=== PATIENT | male | born 1975 | race Caucasian/White ===

== ENCOUNTER 2016-09-25 13:45 | Emergency (ER) | payer BC ==
--- NOTE | 2016-09-25 14:36 | ED ORDER SUMMARY ---
..... Patient: DILCIA BUTLER OrderSheet [facility] VisitID: [id number] [address] [place] [address] 40y, M Registration Date/Time: 09/25/2016 ORDER SHEET Weight: 79.3 kg (stated) Allergies: No Known Drug Allergy GENERAL ORDERS: MEDICATION ORDERS: Tdap IM 0.5 mL (NOW, per protocol) (14:36 09/25/2016 Yovana Gallegos) (15:07 Jose Casillas) IV FLUIDS: ORDER SHEET NOTES: [Electronically signed by Torri Engle P.A.-C (15:05 09/25/2016)] [Electronically signed by Iqra Gordon R.N. (15:09/25/2016)] [Electronically locked/signed by Iqra Gordon R.N. (15:09 09/25/2016)]
--- NOTE | 2016-09-25 14:36 | ED NURSING NOTES ---
Clinical Report - Nurses [facility] [place] [place] [address] 09/25/2016 13:47 Patient: DILCIA BUTLER TRIAGE Triage time 13:45. Acuity: LEVEL 3. Chief Complaint: INJURY TO LEFT WRIST. 13:57 09/25/16. Alert. No acute distress. SEPSIS SCREEN: Sepsis Screen. Negative (no infection suspected/documented). JULIANNA COMA SCORE: [place] Coma Scale: 15- eyes open spontaneously (4); best verbal response- oriented x 4 (5); best motor response- obeys commands (6). --13:57 Oren Yee R.N. 13:57 09/25/16. BP: 160/95. HR: 78. RR: 16. O2 saturation: 100%. Temp: 98.0 F. Pain level now 09/24. --13:57 Oren Yee R.N. Weight: 79.3 kg stated. Height/Length: 70 inches Per Patient. BMI: 25.1. --13:54 Oren Yee R.N. Medications None. --13:56 Oren Yee R.N. Allergies No Known Drug Allergy. --13:56 Oren Yee R.N. Medication/allergy information source: the patient. --13:57 Oren Yee R.N. History Arrived by private vehicle. Historian: patient. Accompanied by friend. Primary physician (no pcp). ( chain saw injury to left wrist.). This occurred just prior to arrival. Occurred at home. He sustained a laceration. 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 PAST MEDICAL HX: Tetanus status: unknown. SOCIAL HX: Former smoker, end date 2011. Occasional alcohol use. No drug use. ABUSE ASSESSMENT: Abuse assessment: The patient was asked "Do you feel safe in your home?". No report of abuse. FALL RISK ASSESSMENT: Fall risk assessment completed. No fall risk identified. NUTRITIONAL RISK ASSESSMENT: The nutritional risk assessment revealed no deficiencies. FUNCTIONAL ASSESSMENT: Functional assessment: no impairments noted. LEARNING NEEDS ASSESSMENT: The learning needs assessment revealed no barriers. SKIN INTEGRITY ASSESSMENT: Skin integrity risk assessment completed. No skin integrity risk identified. --13:57 Oren Yee R.N. PROBLEMS: no known problems. ADDITIONAL SURGERIES: no known surgeries. Interventions ID band on patient. To treatment room. --13:57 Oren Yee R.N. PHYSICAL ASSESSMENT 13:58 09/25/16. Ambulatory to room. GENERAL / NEURO / PSYCH: Oriented X 4. Alert. Appears in no acute distress. EXTREMITIES: Capillary refill is less than 2 seconds in the extremities. Extremity pulses are within normal limits. Neuro-vascular status intact to the extremity. Left wrist: subcutaneous 3.0 cm laceration with controlled bleeding. No limitation in ROM. ( c/o tingling to left thumb and pointer finger). SKIN: Skin is warm and dry. --13:58 Oren Yee R.N. NURSING PROGRESS NOTES 13:58 09/25/16. The plan of care for this patient has been created. Extremity elevated. Neuro-vascular extremity check. Call light placed in reach. Bed placed in lowest position. Brakes of bed on. Patient ready for evaluation- chart flagged. --13:58 Oren Yee R.N. Applied bulky dressing consisting of 4x4 gauze, following the application of antibiotic ointment (bacitracin). Secured with kerlix. --14:42 Edward Blake 15:02 09/25/2016 TDAP IM 0.5 mL given. (Lot#: [id number], expiration date: 05/19/2017, Siebel Solution Architect: sanofi pasteur). Given in the right deltoid. Allergies verified and confirmed 5 rights. Vaccine information statement provided to the patient. --15:07 Iqra Gordon R.N. DISPOSITION / DISCHARGE Departure time: 1507 PM. Condition at departure: improved and stable. No learning barriers present. Discharge instructions provided and reviewed with the patient. Reviewed warnings (fevers or s/sy of infection). Reviewed medication(s) side effects, precautions, dosing and course information. Reviewed wound care instructions. Activity restrictions (light lifting and minimal use of injured extremity) reviewed. Patient verbalized understanding. Written instructions provided in [place]. The patient was discharged by the physician nurseryman assistant. He was discharged home and accompanied by family. He left the Emergency Department ambulatory and via private vehicle. FALL RISK ASSESSMENT: Fall risk assessment completed. No fall risk identified. --15:08 Iqra Gordon R.N. 15:07 09/25/16. BP: 148/92 (regular adult cuff) taken on the left arm, via an automated monitor, while sitting. HR: 68. RR: 12. O2 saturation: 100% on room air. Temp: 98.2 F (oral). Pain level now: 0/10. --15:08 Iqra Gordon R.N. Locked/Released at 09/25/2016 15:09 by Iqra Gordon R.N.
--- NOTE | 2016-09-25 14:36 | ED ORDER SUMMARY ---
..... Patient: DILCIA BUTLER OrderSheet [facility] VisitID: [id number] [address] [place] [address] 40y, M Registration Date/Time: 09/25/2016 ORDER SHEET Weight: 79.3 kg (stated) Allergies: No Known Drug Allergy GENERAL ORDERS: MEDICATION ORDERS: Tdap IM 0.5 mL (NOW, per protocol) (14:36 09/25/2016 Yovana Gallegos) (15:07 Jose Casillas) IV FLUIDS: ORDER SHEET NOTES: [Electronically signed by Torri Engle P.A.-C (15:05 09/25/2016)] [Electronically signed by Iqra Gordon R.N. (15:09/25/2016)] [Electronically locked/signed by Iqra Gordon R.N. (15:09 09/25/2016)]
--- NOTE | 2016-09-25 14:36 | ED NURSING NOTES ---
Clinical Report - Nurses [facility] [place] [address] 09/25/2016 13:47 Patient: DILCIA BUTLER TRIAGE Triage time 13:45. Acuity: LEVEL 3. Chief Complaint: INJURY TO LEFT WRIST. 13:57 09/25/16. Alert. No acute distress. SEPSIS SCREEN: Sepsis Screen. Negative (no infection suspected/documented). JULIANNA COMA SCORE: [place] Coma Scale: 15- eyes open spontaneously (4); best verbal response- oriented x 4 (5); best motor response- obeys commands (6). --13:57 Oren Yee R.N. 13:57 09/25/16. BP: 160/95. HR: 78. RR: 16. O2 saturation: 100%. Temp: 98.0 F. Pain level now 09/24. --13:57 Oren Yee R.N. Weight: 79.3 kg stated. Height/Length: 70 inches Per Patient. BMI: 25.1. --13:54 Oren Yee R.N. Medications None. --13:56 Oren Yee R.N. Allergies No Known Drug Allergy. --13:56 Oren Yee R.N. Medication/allergy information source: the patient. --13:57 Oren Yee R.N. History Arrived by private vehicle. Historian: patient. Accompanied by friend. Primary physician (no pcp). ( chain saw injury to left wrist.). This occurred just prior to arrival. Occurred at home. He sustained a laceration. 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 PAST MEDICAL HX: Tetanus status: unknown. SOCIAL HX: Former smoker, end date 2011. Occasional alcohol use. No drug use. ABUSE ASSESSMENT: Abuse assessment: The patient was asked "Do you feel safe in your home?". No report of abuse. FALL RISK ASSESSMENT: Fall risk assessment completed. No fall risk identified. NUTRITIONAL RISK ASSESSMENT: The nutritional risk assessment revealed no deficiencies. FUNCTIONAL ASSESSMENT: Functional assessment: no impairments noted. LEARNING NEEDS ASSESSMENT: The learning needs assessment revealed no barriers. SKIN INTEGRITY ASSESSMENT: Skin integrity risk assessment completed. No skin integrity risk identified. --13:57 Oren Yee R.N. PROBLEMS: no known problems. ADDITIONAL SURGERIES: no known surgeries. Interventions ID band on patient. To treatment room. --13:57 Oren Yee R.N. PHYSICAL ASSESSMENT 13:58 09/25/16. Ambulatory to room. GENERAL / NEURO / PSYCH: Oriented X 4. Alert. Appears in no acute distress. EXTREMITIES: Capillary refill is less than 2 seconds in the extremities. Extremity pulses are within normal limits. Neuro-vascular status intact to the extremity. Left wrist: subcutaneous 3.0 cm laceration with controlled bleeding. No limitation in ROM. ( c/o tingling to left thumb and pointer finger). SKIN: Skin is warm and dry. --13:58 Oren Yee R.N. NURSING PROGRESS NOTES 13:58 09/25/16. The plan of care for this patient has been created. Extremity elevated. Neuro-vascular extremity check. Call light placed in reach. Bed placed in lowest position. Brakes of bed on. Patient ready for evaluation- chart flagged. --13:58 Oren Yee R.N. Applied bulky dressing consisting of 4x4 gauze, following the application of antibiotic ointment (bacitracin). Secured with kerlix. --14:42 Edward Blake 15:02 09/25/2016 TDAP IM 0.5 mL given. (Lot#: [id number], expiration date: 05/19/2017, Lap Machine Operator: sanofi pasteur). Given in the right deltoid. Allergies verified and confirmed 5 rights. Vaccine information statement provided to the patient. --15:07 Iqra Gordon R.N. DISPOSITION / DISCHARGE Departure time: 1507 PM. Condition at departure: improved and stable. No learning barriers present. Discharge instructions provided and reviewed with the patient. Reviewed warnings (fevers or s/sy of infection). Reviewed medication(s) side effects, precautions, dosing and course information. Reviewed wound care instructions. Activity restrictions (light lifting and minimal use of injured extremity) reviewed. Patient verbalized understanding. Written instructions provided in [place]. The patient was discharged by the physician mri assistant. He was discharged home and accompanied by family. He left the Emergency Department ambulatory and via private vehicle. FALL RISK ASSESSMENT: Fall risk assessment completed. No fall risk identified. --15:08 Iqra Gordon R.N. 15:07 09/25/16. BP: 148/92 (regular adult cuff) taken on the left arm, via an automated monitor, while sitting. HR: 68. RR: 12. O2 saturation: 100% on room air. Temp: 98.2 F (oral). Pain level now: 0/10. --15:08 Iqra Gordon R.N. Locked/Released at 09/25/2016 15:09 by Iqra Gordon R.N.
--- NOTE | 2016-09-25 14:36 | ED CLINICAL REPORT ---
Clinical Report - Physicians/Mid Levels [facility] [address] [place] [address] 09/25/2016 13:47 [id number] Time Seen: 13:54 Sep 25 2016. Arrived- By private vehicle. Historian- patient. HISTORY OF PRESENT ILLNESS Chief Complaint: Injury to the left hand. The injury happened just prior to arrival. The patient sustained a laceration. Occurred at home. Patient is experiencing mild pain. ( Patient sustained a laceration to his left hand from a chainsaw. Reports he is right-hand dominant. Unsure of last tetanus immunization. No difficulty with mo). REVIEW OF SYSTEMS The patient sustained a laceration. No numbness. All systems otherwise negative, except as recorded above. PAST HISTORY The patient's dominant hand is the right. He has not had a prior injury to the same area. SOCIAL HISTORY Former smoker. ADDITIONAL NOTES The nursing notes have been reviewed. PHYSICAL EXAM Vital Signs: 09/25/2016 13:57 BP: 160/95. HR: 78. RR: 16. O2 saturation: 100%. Temp: 98.0 F. Appearance: Alert. No acute distress. Head: Head atraumatic. ENT: Nose normal. CVS: Normal heart rate and rhythm. Heart sounds normal. Respiratory: No respiratory distress. Breath sounds normal. Skin: Skin warm. Extremities: Dorsal left hand: (Just proximal to the rest there is a 3 cm irregular laceration, diagonal in nature into the radial aspect of the dorsal surface of the distal forearm. Gaping, no underlying bleeding. No osseous tenderness. Full range of motion of the thumb in all directions with good strength, in addition for extension of the second third and fourth digits. No signs of foreign body.). No soft tissue tenderness or bony tenderness. No signs of infection present. Neuro, Vascular and Tendons: Vascular status intact. No pulse deficit present. Motor intact. Tendon function intact. No functional tendon deficit. Neuro: Oriented X 3. PROGRESS AND PROCEDURES Laceration Repair: Time: 15:04 Sep 25 2016. Location: (L. Distal forearm). Time-out completed immediately before the procedure. Length: 3.5. Complexity: simple (local anesthesia used and sutured). Wound depth/shape- curved and involving fascia. Wound is clean. No sensory deficit distally. Local anesthesia provided using 1% lidocaine. Prepped with Betadine. Wound explored, cleansed and irrigated. Debrided. Subcutaneous closure: interrupted 4-0 (11 sutures). Post-procedure: he is stable and there are no complications. Bleeding is controlled and neuro-vascular status is intact distal to the wound. Dressing applied. Tetanus immunization up-to-date. Course of Care: There are no underlying signs of fracture. Exam, or injury to the tendon or nerve. No bleeding. Stable. Tetanus immunization in the ER. Margins approximated. Lac repaired with Suture . Symptoms better. Patient/family counseled. Disposition: Discharged. CLINICAL IMPRESSION Single deep laceration to the left wrist.Treatment of laceration not delayed. No infection or foreign body present. INSTRUCTIONS Protect wound and keep wound area clean. Apply bacitracin twice daily. Sutures should be removed in seven days. Limit use of your hand. Warnings: TETANUS: You were given a tetanus shot during your visit. Make a note for future reference. OTC Medications: Take OTC medications according to label instructions. Available over the counter. Acetaminophen (available over the counter): take according to label instructions. Motrin (available over the counter): take according to label instructions. Follow-up: Follow up with your doctor in three days. (Electronically signed by Torri Engle P.A.-C 09/25/2016 15:05)
--- NOTE | 2016-09-25 14:36 | ED CLINICAL REPORT ---
Clinical Report - Physicians/Mid Levels [facility] [address] [place] [address] 09/25/2016 13:47 [id number] Time Seen: 13:54 Sep 25 2016. Arrived- By private vehicle. Historian- patient. HISTORY OF PRESENT ILLNESS Chief Complaint: Injury to the left hand. The injury happened just prior to arrival. The patient sustained a laceration. Occurred at home. Patient is experiencing mild pain. ( Patient sustained a laceration to his left hand from a chainsaw. Reports he is right-hand dominant. Unsure of last tetanus immunization. No difficulty with mo). REVIEW OF SYSTEMS The patient sustained a laceration. No numbness. All systems otherwise negative, except as recorded above. PAST HISTORY The patient's dominant hand is the right. He has not had a prior injury to the same area. SOCIAL HISTORY Former smoker. ADDITIONAL NOTES The nursing notes have been reviewed. PHYSICAL EXAM Vital Signs: 09/25/2016 13:57 BP: 160/95. HR: 78. RR: 16. O2 saturation: 100%. Temp: 98.0 F. Appearance: Alert. No acute distress. Head: Head atraumatic. ENT: Nose normal. CVS: Normal heart rate and rhythm. Heart sounds normal. Respiratory: No respiratory distress. Breath sounds normal. Skin: Skin warm. Extremities: Dorsal left hand: (Just proximal to the rest there is a 3 cm irregular laceration, diagonal in nature into the radial aspect of the dorsal surface of the distal forearm. Gaping, no underlying bleeding. No osseous tenderness. Full range of motion of the thumb in all directions with good strength, in addition for extension of the second third and fourth digits. No signs of foreign body.). No soft tissue tenderness or bony tenderness. No signs of infection present. Neuro, Vascular and Tendons: Vascular status intact. No pulse deficit present. Motor intact. Tendon function intact. No functional tendon deficit. Neuro: Oriented X 3. PROGRESS AND PROCEDURES Laceration Repair: Time: 15:04 Sep 25 2016. Location: (L. Distal forearm). Time-out completed immediately before the procedure. Length: 3.5. Complexity: simple (local anesthesia used and sutured). Wound depth/shape- curved and involving fascia. Wound is clean. No sensory deficit distally. Local anesthesia provided using 1% lidocaine. Prepped with Betadine. Wound explored, cleansed and irrigated. Debrided. Subcutaneous closure: interrupted 4-0 (11 sutures). Post-procedure: he is stable and there are no complications. Bleeding is controlled and neuro-vascular status is intact distal to the wound. Dressing applied. Tetanus immunization up-to-date. Course of Care: There are no underlying signs of fracture. Exam, or injury to the tendon or nerve. No bleeding. Stable. Tetanus immunization in the ER. Margins approximated. Lac repaired with Suture . Symptoms better. Patient/family counseled. Disposition: Discharged. CLINICAL IMPRESSION Single deep laceration to the left wrist.Treatment of laceration not delayed. No infection or foreign body present. INSTRUCTIONS Protect wound and keep wound area clean. Apply bacitracin twice daily. Sutures should be removed in seven days. Limit use of your hand. Warnings: TETANUS: You were given a tetanus shot during your visit. Make a note for future reference. OTC Medications: Take OTC medications according to label instructions. Available over the counter. Acetaminophen (available over the counter): take according to label instructions. Motrin (available over the counter): take according to label instructions. Follow-up: Follow up with your doctor in three days. (Electronically signed by Torri Engle P.A.-C 09/25/2016 15:05)
--- NOTE | 2016-09-25 15:10 | ED MAR SUMMARY ---
..... Medication Administration Record [facility] [address] [place] [address] Patient: DILCIA BUTLER Visit ID: [id number] 40y, M Weight: 79.3 kg Height/Length: 70 in BMI: 25.1 ALLERGIES: No Known Drug Allergy Given 15:02 09/25/2016 Iqra Gordon R.N. Medication Administered: TDAP [IM], Dose: 0.5 mL IM. Medication Ordered: Tdap IM 0.5 mL (NOW, per protocol).
--- NOTE | 2016-09-25 15:10 | ED DISCHARGE INSTRUCTIONS ---
Patient: DILCIA BUTLER General Instructions [facility] VisitID: [id number] [place] [address] 40y, M Registration Date/Time: 09/25/2016 Single deep laceration to the left wrist.Treatment of laceration not delayed. No infection or foreign body present. INSTRUCTIONS Protect wound and keep wound area clean. Apply bacitracin twice daily. Sutures should be removed in seven days. Limit use of your hand. Warnings: TETANUS: You were given a tetanus shot during your visit. Make a note for future reference. OTC Medications: Take OTC medications according to label instructions. Available over the counter. Acetaminophen (available over the counter): take according to label instructions. Motrin (available over the counter): take according to label instructions. Follow-up: Follow up with your doctor in three days. ADDITIONAL INFORMATION Laceration, Extremity (Sutures, Yuko, Or Tape) A laceration is a cut through the skin. This will usually require stitches (sutures) or yuko if it is deep. Minor cuts may be treated with surgical tape closures. Home care The following guidelines will help you care for your laceration at home: Keep the wound clean and dry. If a bandage was applied and it becomes wet or dirty, replace it. Otherwise, leave it in place for the first 24 hours, then change it once a day or as directed. If stitches or yuko were used, clean the wound daily: After removing the bandage, wash the area with soap and water. Use a wet cotton swab to loosen and remove any blood or crust that forms. After cleaning, keep the wound clean and dry. Talk with your doctor before applying any antibiotic ointment to the wound. Reapply the bandage. You may remove the bandage to shower as usual after the first 24 hours, but do not soak the area in water (no swimming) until the stitches or yuko are removed. If surgical tape closures were used, keep the area clean and dry. If it becomes wet, blot it dry with a towel. The doctor may prescribe an antibiotic cream or ointment to prevent infection. Do not stop taking this medication until you have finished the prescribed course or the doctor tells you to stop. The doctor may also prescribe medications for pain. Follow the doctors instructions for taking these medications. If you have chronic liver or kidney disease or ever had a stomach ulcer or GI bleeding, talk with your doctor before using these medicines. Follow-up care Follow up with your health care provider. Most skin wounds heal within ten days. However, an infection may sometimes occur despite proper treatment. Therefore, check the wound daily for the signs of infection listed below. Stitches and yuko should be removed within 714 days. If surgical tape closures were used, you may remove them after 10 days, if they have not fallen off by then. Notify your doctor if you notice persistent numbness or weakness in the injured extremity. (Note:A radiologist will review any X-rays that were taken. We will notify you of any new findings that may affect your care.) When to seek medical care Get prompt medical attention if any of these occur: Increasing pain in the wound Redness, swelling, or pus coming from the wound Fever of 100.4F (38C) or higher, or as directed by your health care provider If stitches or yuko come apart or fall out before your next appointment If the surgical tape closures fall off within seven days, or the wound edges re-open Bleeding not controlled by direct pressure Diphtheria Toxoid Adsorbed, Pertussis Vaccine, Acellular (Adsorbed), Tetanus Toxoid, Adsorbed Suspension for injection What is this medicine? DIPHTHERIA and TETANUS TOXOIDS; PERTUSSIS VACCINE (dif THEER ee uh and TET n us TOK soids; per TUS iss vak SEEN) is used to prevent diphtheria, tetanus, and pertussis infections. How should I use this medicine? This vaccine is for injection into a muscle. It is given by a health certified social workers in health care. A copy of Vaccine Information Statements will be given before each vaccination. Read this sheet carefully each time. The sheet may change frequently. Talk to your flanger regarding the use of this vaccine in children. While the DTP vaccine may be given to children ages 6 weeks to 7 years and the Tdap vaccine may be given to children at least 10 years old, precautions do apply. What side effects may I notice from receiving this medicine? Side effects that you should report to your doctor or health certified social workers in health care as soon as possible: allergic reactions like skin rash, itching or hives, swelling of the face, lips, or tongue breathing problems fever of 103 degrees F or more flu-like symptoms inconsolable crying infection pain, tingling, numbness in the hands or feet seizures swelling of arm or leg that was injected unusually weak or tired Side effects that usually do not require immediate medical attention (report these side effects to your doctor or health certified social workers in health care if they continue or are bothersome): fussy, irritable loss of appetite fever of 102 degrees F or less pain, tenderness, redness, swelling, or a 'knot' at site where injected vomiting What may interact with this medicine? immune globulin medicines that suppress your immune function like adalimumab, anakinra, infliximab medicines to treat cancer medicines that treat or prevent blood clots like warfarin, enoxaparin, and dalteparin steroid medicines like prednisone or cortisone What if I miss a dose? It is important not to miss your dose. Call your doctor or health certified social workers in health care if you are unable to keep an appointment. Where should I keep my medicine? This drug is given in a hospital or clinic and will not be stored at home. What should I tell my health care provider before I take this medicine? They need to know if you have any of these conditions: blood disorders like hemophilia fever or infection immune system problems neurologic disease seizures an unusual or allergic reaction to vaccines, thimerosal, latex, other medicines, foods, dyes, or preservatives or trying to get breast-feeding What should I watch for while using this medicine? See your health care provider for all shots of this vaccine as directed. To have protection from infection, you must have 3 shots of this vaccine plus boosters as needed. Tell your doctor right away if you have any serious or unusual side effects after getting this vaccine. You have been given the following additional information: Laceration, Extrem (Suture, Staple, Or Tape) Diphtheria Toxoid Adsorbed, Pertussis Vaccine, Acellular (Adsorbed), Tetanus Toxoid, Adsorbed Suspension for injection Limit use of your hand. (Electronically signed by Torri Engle P.A.-C 09/25/2016 15:05)
--- NOTE | 2016-09-25 15:10 | ED MED RECONCILIATION SUMMARY ---
Patient: DILCIA BUTLER Medication Reconciliation Report [facility] VisitID: [id number] [address] [place] [address] 40y, M Registration Date/Time: 09/25/2016 Weight: 79.3 kg Height/Length: 70 in. BMI: 25.1 ALLERGIES: No Known Drug Allergy The patient's Home Medications are listed below: NONE. The source(s) of the original Home Medication information: patient The following Medications were given to the patient in the Emergency Department: TDAP [IM] IM 0.5 mL, administered: 09/25/2016 3:02:00 PM The following Medications were prescribed to the patient: Take OTC medications according to label instructions. Available over the counter. -- Torri Engle, P.A.-C Acetaminophen (available over the counter): take according to label instructions. -- Torri Engle, P.A.-C Motrin (available over the counter): take according to label instructions. -- Trori Engle, P.A.-C
--- NOTE | 2016-09-25 15:10 | ED MED RECONCILIATION SUMMARY ---
Patient: DILCIA BUTLER Medication Reconciliation Report [facility] VisitID: [id number] [address] [place] [address] 40y, M Registration Date/Time: 09/25/2016 Weight: 79.3 kg Height/Length: 70 in. BMI: 25.1 ALLERGIES: No Known Drug Allergy The patient's Home Medications are listed below: NONE. The source(s) of the original Home Medication information: patient The following Medications were given to the patient in the Emergency Department: TDAP [IM] IM 0.5 mL, administered: 09/25/2016 3:02:00 PM The following Medications were prescribed to the patient: Take OTC medications according to label instructions. Available over the counter. -- Torri Engle, P.A.-C Acetaminophen (available over the counter): take according to label instructions. -- Torri Engle, P.A.-C Motrin (available over the counter): take according to label instructions. -- Torri Engle, P.A.-C
--- NOTE | 2016-09-25 15:10 | ED MAR SUMMARY ---
..... Medication Administration Record [facility] [address] [place] [address] Patient: DILCIA BUTLER Visit ID: [id number] 40y, M Weight: 79.3 kg Height/Length: 70 in BMI: 25.1 ALLERGIES: No Known Drug Allergy Given 15:02 09/25/2016 Iqra Gordon R.N. Medication Administered: TDAP [IM], Dose: 0.5 mL IM. Medication Ordered: Tdap IM 0.5 mL (NOW, per protocol).
--- NOTE | 2016-09-25 15:10 | ED DISCHARGE INSTRUCTIONS ---
Patient: DILCIA BUTLER General Instructions [facility] VisitID: [id number] [place] [address] 40y, M Registration Date/Time: 09/25/2016 Single deep laceration to the left wrist.Treatment of laceration not delayed. No infection or foreign body present. INSTRUCTIONS Protect wound and keep wound area clean. Apply bacitracin twice daily. Sutures should be removed in seven days. Limit use of your hand. Warnings: TETANUS: You were given a tetanus shot during your visit. Make a note for future reference. OTC Medications: Take OTC medications according to label instructions. Available over the counter. Acetaminophen (available over the counter): take according to label instructions. Motrin (available over the counter): take according to label instructions. Follow-up: Follow up with your doctor in three days. ADDITIONAL INFORMATION Laceration, Extremity (Sutures, Yuko, Or Tape) A laceration is a cut through the skin. This will usually require stitches (sutures) or yuko if it is deep. Minor cuts may be treated with surgical tape closures. Home care The following guidelines will help you care for your laceration at home: Keep the wound clean and dry. If a bandage was applied and it becomes wet or dirty, replace it. Otherwise, leave it in place for the first 24 hours, then change it once a day or as directed. If stitches or yuko were used, clean the wound daily: After removing the bandage, wash the area with soap and water. Use a wet cotton swab to loosen and remove any blood or crust that forms. After cleaning, keep the wound clean and dry. Talk with your doctor before applying any antibiotic ointment to the wound. Reapply the bandage. You may remove the bandage to shower as usual after the first 24 hours, but do not soak the area in water (no swimming) until the stitches or yuko are removed. If surgical tape closures were used, keep the area clean and dry. If it becomes wet, blot it dry with a towel. The doctor may prescribe an antibiotic cream or ointment to prevent infection. Do not stop taking this medication until you have finished the prescribed course or the doctor tells you to stop. The doctor may also prescribe medications for pain. Follow the doctors instructions for taking these medications. If you have chronic liver or kidney disease or ever had a stomach ulcer or GI bleeding, talk with your doctor before using these medicines. Follow-up care Follow up with your health care provider. Most skin wounds heal within ten days. However, an infection may sometimes occur despite proper treatment. Therefore, check the wound daily for the signs of infection listed below. Stitches and yuko should be removed within 714 days. If surgical tape closures were used, you may remove them after 10 days, if they have not fallen off by then. Notify your doctor if you notice persistent numbness or weakness in the injured extremity. (Note:A radiologist will review any X-rays that were taken. We will notify you of any new findings that may affect your care.) When to seek medical care Get prompt medical attention if any of these occur: Increasing pain in the wound Redness, swelling, or pus coming from the wound Fever of 100.4F (38C) or higher, or as directed by your health care provider If stitches or yuko come apart or fall out before your next appointment If the surgical tape closures fall off within seven days, or the wound edges re-open Bleeding not controlled by direct pressure Diphtheria Toxoid Adsorbed, Pertussis Vaccine, Acellular (Adsorbed), Tetanus Toxoid, Adsorbed Suspension for injection What is this medicine? DIPHTHERIA and TETANUS TOXOIDS; PERTUSSIS VACCINE (dif THEER ee uh and TET n us TOK soids; per TUS iss vak SEEN) is used to prevent diphtheria, tetanus, and pertussis infections. How should I use this medicine? This vaccine is for injection into a muscle. It is given by a health wound care technician. A copy of Vaccine Information Statements will be given before each vaccination. Read this sheet carefully each time. The sheet may change frequently. Talk to your electric cutter operator regarding the use of this vaccine in children. While the DTP vaccine may be given to children ages 6 weeks to 7 years and the Tdap vaccine may be given to children at least 10 years old, precautions do apply. What side effects may I notice from receiving this medicine? Side effects that you should report to your doctor or health wound care technician as soon as possible: allergic reactions like skin rash, itching or hives, swelling of the face, lips, or tongue breathing problems fever of 103 degrees F or more flu-like symptoms inconsolable crying infection pain, tingling, numbness in the hands or feet seizures swelling of arm or leg that was injected unusually weak or tired Side effects that usually do not require immediate medical attention (report these side effects to your doctor or health wound care technician if they continue or are bothersome): fussy, irritable loss of appetite fever of 102 degrees F or less pain, tenderness, redness, swelling, or a 'knot' at site where injected vomiting What may interact with this medicine? immune globulin medicines that suppress your immune function like adalimumab, anakinra, infliximab medicines to treat cancer medicines that treat or prevent blood clots like warfarin, enoxaparin, and dalteparin steroid medicines like prednisone or cortisone What if I miss a dose? It is important not to miss your dose. Call your doctor or health wound care technician if you are unable to keep an appointment. Where should I keep my medicine? This drug is given in a hospital or clinic and will not be stored at home. What should I tell my health care provider before I take this medicine? They need to know if you have any of these conditions: blood disorders like hemophilia fever or infection immune system problems neurologic disease seizures an unusual or allergic reaction to vaccines, thimerosal, latex, other medicines, foods, dyes, or preservatives or trying to get breast-feeding What should I watch for while using this medicine? See your health care provider for all shots of this vaccine as directed. To have protection from infection, you must have 3 shots of this vaccine plus boosters as needed. Tell your doctor right away if you have any serious or unusual side effects after getting this vaccine. You have been given the following additional information: Laceration, Extrem (Suture, Staple, Or Tape) Diphtheria Toxoid Adsorbed, Pertussis Vaccine, Acellular (Adsorbed), Tetanus Toxoid, Adsorbed Suspension for injection Limit use of your hand. (Electronically signed by Torri Engle P.A.-C 09/25/2016 15:05)
== END 2016-09-25 15:09 | disposition home or self-care (01) ==
LOC: ED SRH 13:45
DX: S61.512A Laceration without foreign body of left wrist, initial encounter (principal); W29.3XXA Contact with powered garden and outdoor hand tools and machinery, initial encounter; Y93.9 Activity, unspecified; Y92.009 Unspecified place in unspecified non-institutional (private) residence as the place of occurrence of the external cause; Y99.9 Unspecified external cause status; Z23 Encounter for immunization; Z87.891 Personal history of nicotine dependence